=== PATIENT | female | born 1940 ===

== ENCOUNTER 2017-06-08 08:06 | Inpatient (IN) ==
[2017-06-08] MEDS ORDERED: ASPIRIN 325 MG TABLET PO STA (08:45)
[2017-06-08] MEDS ORDERED: ENOXAPARIN 100 MG/ML SYRINGE SUBCUT STA (08:45)
[2017-06-08] MEDS ORDERED: ACETAMINOPHEN 325 MG TABLET PO PRN (10:37)
[2017-06-08] MEDS ORDERED: ONDANSETRON 4 MG/2 ML VIAL IV PRN (10:37)
[2017-06-08] MEDS ORDERED: DEXTROSE 50% 25 GM/50 ML VIAL IV PRN (10:44)
[2017-06-08] MEDS ORDERED: GLUCAGON 1 MG VIAL IM PRN (10:44)
[2017-06-08] MEDS ORDERED: COLLOIDAL OATMEAL TOP SCH (10:45)
[2017-06-08] MEDS ORDERED: ENOXAPARIN 30 MG/0.3 ML SYRINGE SUBCUT SCH (11:00)
[2017-06-08] MEDS: INSULIN REGULAR 100 UNIT/ML SUBCUT SCH ×2 (13:10→17:33)
[2017-06-08] MEDS: GABAPENTIN 100 MG CAPSULE PO SCH ×2 (14:46→23:14)
[2017-06-08] MEDS: FUROSEMIDE 40 MG/4 ML VIAL IV SCH (16:19)
[2017-06-08] MEDS: ISOSORBIDE MONONITRATE 30 MG TABLET PO SCH (16:19)
[2017-06-08] MEDS: INSULIN NPH/REGULAR 70/30 100 UNIT/ML SUBCUT SCH (17:14)
[2017-06-08] MEDS: FERROUS GLUCONATE 324 MG TABLET PO SCH (17:14)
[2017-06-08] MEDS: SUCRALFATE 1 GM TABLET PO SCH (17:20)
[2017-06-08] MEDS: CARVEDILOL 6.25 MG TABLET PO SCH (23:14)
[2017-06-08] MEDS: hydrALAZINE 10 MG TABLET PO SCH (23:14)
[2017-06-08] MEDS: DOCUSATE SODIUM 100 MG CAPSULE PO SCH (23:14)
[2017-06-08] MEDS: DOXYCYCLINE HYCLATE 100 MG CAPSULE PO SCH (23:14)
[2017-06-08] MEDS: ENOXAPARIN 100 MG/ML SYRINGE SUBCUT SCH (23:14)
[2017-06-09] MEDS: SUCRALFATE 1 GM TABLET PO SCH ×4 (00:09→17:00)
[2017-06-09] MEDS: INSULIN REGULAR 100 UNIT/ML SUBCUT SCH ×4 (00:33→17:55)
[2017-06-09 04:52] LABS: Basophils % 0.3 % (0.0-0.8); Eosinophils # 0.1 10*3/uL (0.0-0.87); Eosinophils % 2.3 % (0.00-10.9); Hematocrit 25.1 VOL% (35.7-47.0); Immature Granulocytes % 0.3 %; Immature Granulocytes Absolute 0.01 #; Lymphocytes # 1.3 10*3/uL (1.4-4.0); Lymphocytes % 37.9 % (21.3-54.2); Mean Corpuscular HGB Conc 31.9 GM/DL (32-36); Mean Corpuscular Hemoglobin 32 PG (27-34); Mean Corpuscular Volume 98.8 FL (87-102); Mean Platelet Volume 9.6 FL (9.6-12.0); Monocytes # 0.2 10*3/uL (0.11-0.8); Neutrophils # 1.9 10*3/uL (1.4-7.4); Neutrophils % 54.2 % (38.7-73.9); Platelet Count 116 T/CUMM (130-400); Red Blood Count 2.54 MC/CUMM (3.8-5.5); Red Cell Distribution Width 12.7 % (9.3-17.3); White Blood Count 3.4 T/CUMM (4-12)
[2017-06-09 06:03] LABS: Calcium 7.8 MG/DL (8.5-10.1); Potassium 4.9 MMOL/L (3.5-5.1); Risk Ratio 2.42
[2017-06-09] MEDS ORDERED: ENOXAPARIN 30 MG/0.3 ML SYRINGE SUBCUT SCH (09:00)
[2017-06-09] MEDS ORDERED: LISINOPRIL 20 MG TABLET PO SCH (09:00)
[2017-06-09] MEDS ORDERED: ERGOCALCIFEROL 50,000 UNIT CAPSULE PO SCH (09:00)
[2017-06-09] MEDS: DOXYCYCLINE HYCLATE 100 MG CAPSULE PO SCH ×2 (10:38→20:50)
[2017-06-09] MEDS: FERROUS GLUCONATE 324 MG TABLET PO SCH ×2 (10:38→17:00)
[2017-06-09] MEDS: CARVEDILOL 6.25 MG TABLET PO SCH (10:38)
[2017-06-09] MEDS: ASPIRIN EC 81 MG TABLET PO SCH (10:38)
[2017-06-09] MEDS: GABAPENTIN 100 MG CAPSULE PO SCH ×3 (10:38→20:50)
[2017-06-09] MEDS: PANTOPRAZOLE 40 MG TABLET PO SCH (10:38)
[2017-06-09] MEDS: CHLORTHALIDONE 25 MG TABLET PO SCH (10:38)
[2017-06-09] MEDS: ISOSORBIDE MONONITRATE 30 MG TABLET PO SCH (10:38)
[2017-06-09] MEDS: TAMOXIFEN 10 MG TABLET PO SCH (10:38)
[2017-06-09] MEDS: DOCUSATE SODIUM 100 MG CAPSULE PO SCH ×2 (10:38→20:51)
[2017-06-09] MEDS: FUROSEMIDE 40 MG/4 ML VIAL IV SCH ×2 (10:39→16:25)
[2017-06-09] MEDS: INSULIN NPH/REGULAR 70/30 100 UNIT/ML SUBCUT SCH ×2 (10:39→17:00)
[2017-06-09] MEDS: ENOXAPARIN 40 MG/0.4 ML SYRINGE SUBCUT SCH (10:39)
[2017-06-09] MEDS: hydrALAZINE 10 MG TABLET PO SCH (10:39)
[2017-06-09] MEDS: ENOXAPARIN 100 MG/ML SYRINGE SUBCUT SCH (11:04)
[2017-06-09] MEDS ORDERED: CARVEDILOL 6.25 MG TABLET PO ONE (12:39)
[2017-06-09] MEDS: amLODIPine 5 MG TABLET PO SCH (12:57)
[2017-06-09] MEDS ORDERED: SKIN HEALING OINT (AQUAPHOR) 50 GM TUBE TOP PRN (15:55)
[2017-06-09] MEDS: ATORVASTATIN 40 MG TABLET PO SCH (20:50)
[2017-06-09] MEDS: CARVEDILOL 12.5 MG TABLET PO SCH (20:51)
[2017-06-09] MEDS ORDERED: CARVEDILOL 12.5 MG TABLET PO SCH (21:00)
[2017-06-09] MEDS ORDERED: CARVEDILOL 6.25 MG TABLET PO SCH (21:00)
[2017-06-10] MEDS: SUCRALFATE 1 GM TABLET PO SCH ×5 (00:29→23:35)
[2017-06-10] MEDS: INSULIN REGULAR 100 UNIT/ML SUBCUT SCH ×5 (00:29→20:51)
[2017-06-10 05:16] LABS: Basophils % 0.4 % (0.0-0.8); Eosinophils # 0.1 10*3/uL (0.0-0.87); Eosinophils % 3.6 % (0.00-10.9); Hematocrit 24.5 VOL% (35.7-47.0); Lymphocytes # 1.2 10*3/uL (1.4-4.0); Lymphocytes % 42.8 % (21.3-54.2); Mean Corpuscular HGB Conc 32.7 GM/DL (32-36); Mean Corpuscular Hemoglobin 32 PG (27-34); Mean Corpuscular Volume 97.6 FL (87-102); Mean Platelet Volume 10.3 FL (9.6-12.0); Monocytes # 0.2 10*3/uL (0.11-0.8); Monocytes % 6.5 % (1.7-12.7); Neutrophils # 1.3 10*3/uL (1.4-7.4); Neutrophils % 46.7 % (38.7-73.9); Platelet Count 104 T/CUMM (130-400); Red Blood Count 2.51 MC/CUMM (3.8-5.5); Red Cell Distribution Width 12.9 % (9.3-17.3); White Blood Count 2.8 T/CUMM (4-12)
[2017-06-10 05:36] LABS: Hypochromasia 1+; Ovalocytes Slight; Platelet Estimate Decreased
[2017-06-10 05:44] LABS: Calcium 7.8 MG/DL (8.5-10.1); Potassium 4.8 MMOL/L (3.5-5.1)
[2017-06-10] MEDS ORDERED: FUROSEMIDE 20 MG TABLET PO SCH (09:00)
[2017-06-10] MEDS: INSULIN NPH/REGULAR 70/30 100 UNIT/ML SUBCUT SCH ×2 (09:46→17:57)
[2017-06-10] MEDS: ENOXAPARIN 40 MG/0.4 ML SYRINGE SUBCUT SCH (09:49)
[2017-06-10] MEDS: FERROUS GLUCONATE 324 MG TABLET PO SCH ×2 (09:50→17:56)
[2017-06-10] MEDS: PANTOPRAZOLE 40 MG TABLET PO SCH (09:50)
[2017-06-10] MEDS: TAMOXIFEN 10 MG TABLET PO SCH (09:50)
[2017-06-10] MEDS: CHLORTHALIDONE 25 MG TABLET PO SCH (09:50)
[2017-06-10] MEDS: CARVEDILOL 12.5 MG TABLET PO SCH ×2 (09:50→20:51)
[2017-06-10] MEDS: DOXYCYCLINE HYCLATE 100 MG CAPSULE PO SCH ×2 (09:50→20:51)
[2017-06-10] MEDS: GABAPENTIN 100 MG CAPSULE PO SCH ×3 (09:51→20:51)
[2017-06-10] MEDS: BACITRACIN OINT 0.9 GM PACK TOP SCH (09:51)
[2017-06-10] MEDS: FUROSEMIDE 40 MG/4 ML VIAL IV SCH ×2 (09:51→16:05)
[2017-06-10] MEDS: ASPIRIN EC 81 MG TABLET PO SCH (09:51)
[2017-06-10] MEDS: DOCUSATE SODIUM 100 MG CAPSULE PO SCH ×2 (09:51→20:51)
[2017-06-10] MEDS: amLODIPine 5 MG TABLET PO SCH (09:51)
[2017-06-10] MEDS: ATORVASTATIN 40 MG TABLET PO SCH (20:51)
[2017-06-11 05:02] LABS: Basophils % 0.5 % (0.0-0.8); Eosinophils # 0.1 10*3/uL (0.0-0.87); Eosinophils % 2.4 % (0.00-10.9); Hemoglobin 9.4 GM/DL (12.0-16.0); Immature Granulocytes % 0.5 %; Immature Granulocytes Absolute 0.02 #; Lymphocytes # 1.1 10*3/uL (1.4-4.0); Lymphocytes % 30.3 % (21.3-54.2); Mean Corpuscular HGB Conc 32.4 GM/DL (32-36); Mean Corpuscular Hemoglobin 32 PG (27-34); Mean Corpuscular Volume 98.3 FL (87-102); Mean Platelet Volume 10.6 FL (9.6-12.0); Monocytes # 0.2 10*3/uL (0.11-0.8); Monocytes % 4.3 % (1.7-12.7); Neutrophils # 2.3 10*3/uL (1.4-7.4); Platelet Count 125 T/CUMM (130-400); Red Blood Count 2.95 MC/CUMM (3.8-5.5); Red Cell Distribution Width 12.6 % (9.3-17.3); White Blood Count 3.7 T/CUMM (4-12)
[2017-06-11 05:36] LABS: Calcium 8.2 MG/DL (8.5-10.1); Osmolality,Calculated 296.3 MOS/KG (273-304); Potassium 5.1 MMOL/L (3.5-5.1)
[2017-06-11] MEDS: SUCRALFATE 1 GM TABLET PO SCH ×4 (06:33→23:52)
[2017-06-11] MEDS: INSULIN REGULAR 100 UNIT/ML SUBCUT SCH ×4 (09:51→21:47)
[2017-06-11] MEDS: INSULIN NPH/REGULAR 70/30 100 UNIT/ML SUBCUT SCH ×2 (09:51→17:50)
[2017-06-11] MEDS: DOCUSATE SODIUM 100 MG CAPSULE PO SCH ×2 (09:52→21:07)
[2017-06-11] MEDS: TAMOXIFEN 10 MG TABLET PO SCH (09:52)
[2017-06-11] MEDS: FERROUS GLUCONATE 324 MG TABLET PO SCH ×2 (09:52→16:45)
[2017-06-11] MEDS: GABAPENTIN 100 MG CAPSULE PO SCH ×3 (09:52→21:07)
[2017-06-11] MEDS: PANTOPRAZOLE 40 MG TABLET PO SCH (09:52)
[2017-06-11] MEDS: ASPIRIN EC 81 MG TABLET PO SCH (09:52)
[2017-06-11] MEDS: CHLORTHALIDONE 25 MG TABLET PO SCH (09:52)
[2017-06-11] MEDS: amLODIPine 5 MG TABLET PO SCH (09:52)
[2017-06-11] MEDS: BACITRACIN OINT 0.9 GM PACK TOP SCH (09:52)
[2017-06-11] MEDS: CARVEDILOL 12.5 MG TABLET PO SCH ×2 (09:52→21:07)
[2017-06-11] MEDS: ENOXAPARIN 30 MG/0.3 ML SYRINGE SUBCUT SCH (09:53)
[2017-06-11] MEDS: FUROSEMIDE 40 MG/4 ML VIAL IV SCH ×2 (09:53→16:45)
[2017-06-11] MEDS: ATORVASTATIN 40 MG TABLET PO SCH (21:07)
[2017-06-12] MEDS: SUCRALFATE 1 GM TABLET PO SCH ×3 (05:12→17:00)
[2017-06-12 05:48] LABS: Basophils % 0.3 % (0.0-0.8); Eosinophils # 0.1 10*3/uL (0.0-0.87); Eosinophils % 3.4 % (0.00-10.9); Hematocrit 25.3 VOL% (35.7-47.0); Hemoglobin 8.2 GM/DL (12.0-16.0); Immature Granulocytes % 0.3 %; Immature Granulocytes Absolute 0.01 #; Lymphocytes # 1.8 10*3/uL (1.4-4.0); Lymphocytes % 50.7 % (21.3-54.2); Mean Corpuscular HGB Conc 32.4 GM/DL (32-36); Mean Corpuscular Hemoglobin 32 PG (27-34); Mean Corpuscular Volume 99.2 FL (87-102); Mean Platelet Volume 10.5 FL (9.6-12.0); Monocytes # 0.2 10*3/uL (0.11-0.8); Monocytes % 5.9 % (1.7-12.7); Neutrophils # 1.4 10*3/uL (1.4-7.4); Neutrophils % 39.4 % (38.7-73.9); Platelet Count 114 T/CUMM (130-400); Red Blood Count 2.55 MC/CUMM (3.8-5.5); White Blood Count 3.6 T/CUMM (4-12)
[2017-06-12 06:21] LABS: Calcium 7.9 MG/DL (8.5-10.1); Potassium 4.4 MMOL/L (3.5-5.1)
[2017-06-12] MEDS: FUROSEMIDE 40 MG/4 ML VIAL IV SCH ×2 (10:04→16:51)
[2017-06-12] MEDS: INSULIN NPH/REGULAR 70/30 100 UNIT/ML SUBCUT SCH ×2 (10:07→16:51)
[2017-06-12] MEDS: ENOXAPARIN 30 MG/0.3 ML SYRINGE SUBCUT SCH (10:07)
[2017-06-12] MEDS: INSULIN REGULAR 100 UNIT/ML SUBCUT SCH ×4 (10:09→20:57)
[2017-06-12] MEDS: CARVEDILOL 12.5 MG TABLET PO SCH ×2 (10:09→20:55)
[2017-06-12] MEDS: GABAPENTIN 100 MG CAPSULE PO SCH ×3 (10:09→20:55)
[2017-06-12] MEDS: CHLORTHALIDONE 25 MG TABLET PO SCH (10:09)
[2017-06-12] MEDS: amLODIPine 5 MG TABLET PO SCH (10:10)
[2017-06-12] MEDS: ASPIRIN EC 81 MG TABLET PO SCH (10:10)
[2017-06-12] MEDS: DOCUSATE SODIUM 100 MG CAPSULE PO SCH ×2 (10:10→20:56)
[2017-06-12] MEDS: TAMOXIFEN 10 MG TABLET PO SCH (10:10)
[2017-06-12] MEDS: FERROUS GLUCONATE 324 MG TABLET PO SCH ×2 (10:10→16:50)
[2017-06-12] MEDS: PANTOPRAZOLE 40 MG TABLET PO SCH (10:10)
[2017-06-12] MEDS: BACITRACIN OINT 0.9 GM PACK TOP SCH (10:12)
[2017-06-12] MEDS: ATORVASTATIN 40 MG TABLET PO SCH (20:55)
[2017-06-13] MEDS: SUCRALFATE 1 GM TABLET PO SCH ×3 (00:37→12:31)
[2017-06-13 05:07] LABS: Basophils % 0.3 % (0.0-0.8); Eosinophils # 0.1 10*3/uL (0.0-0.87); Eosinophils % 2.9 % (0.00-10.9); Hematocrit 26.1 VOL% (35.7-47.0); Hemoglobin 8.4 GM/DL (12.0-16.0); Immature Granulocytes % 0.3 %; Immature Granulocytes Absolute 0.01 #; Lymphocytes # 1.3 10*3/uL (1.4-4.0); Lymphocytes % 38.5 % (21.3-54.2); Mean Corpuscular HGB Conc 32.2 GM/DL (32-36); Mean Corpuscular Hemoglobin 32 PG (27-34); Mean Corpuscular Volume 98.1 FL (87-102); Mean Platelet Volume 10.4 FL (9.6-12.0); Monocytes # 0.2 10*3/uL (0.11-0.8); Monocytes % 5.9 % (1.7-12.7); Neutrophils # 1.8 10*3/uL (1.4-7.4); Neutrophils % 52.1 % (38.7-73.9); Platelet Count 112 T/CUMM (130-400); Red Blood Count 2.66 MC/CUMM (3.8-5.5); Red Cell Distribution Width 12.7 % (9.3-17.3); White Blood Count 3.4 T/CUMM (4-12)
[2017-06-13 05:39] LABS: Potassium 4.2 MMOL/L (3.5-5.1)
[2017-06-13] MEDS ORDERED: FUROSEMIDE 40 MG TABLET PO SCH (09:00)
[2017-06-13] MEDS: INSULIN REGULAR 100 UNIT/ML SUBCUT SCH ×2 (09:12→12:30)
[2017-06-13] MEDS: TAMOXIFEN 10 MG TABLET PO SCH (09:15)
[2017-06-13] MEDS: GABAPENTIN 100 MG CAPSULE PO SCH ×2 (09:15→15:12)
[2017-06-13] MEDS: DOCUSATE SODIUM 100 MG CAPSULE PO SCH (09:15)
[2017-06-13] MEDS: amLODIPine 5 MG TABLET PO SCH (09:15)
[2017-06-13] MEDS: FERROUS GLUCONATE 324 MG TABLET PO SCH (09:16)
[2017-06-13] MEDS: CHLORTHALIDONE 25 MG TABLET PO SCH (09:16)
[2017-06-13] MEDS: CARVEDILOL 12.5 MG TABLET PO SCH (09:16)
[2017-06-13] MEDS: ASPIRIN EC 81 MG TABLET PO SCH (09:16)
[2017-06-13] MEDS: INSULIN NPH/REGULAR 70/30 100 UNIT/ML SUBCUT SCH (09:16)
[2017-06-13] MEDS: ENOXAPARIN 30 MG/0.3 ML SYRINGE SUBCUT SCH (09:22)
[2017-06-13] MEDS: PANTOPRAZOLE 40 MG TABLET PO SCH (09:22)
[2017-06-13 10:38] LABS: Anti-Nuclear Antibody Pattern SEE COMMENTS
[2017-06-13 10:40] LABS: Anti SS-A Antibodies < 16 EU/ML; Anti SS-B Antibodies < 16 EU/ML; Double Stranded DNA Antibodies < 25.0 IU/ML
[2017-06-13] MEDS: BACITRACIN OINT 0.9 GM PACK TOP SCH (13:49)
[2017-06-13 16:36] VITALS: BP 124/57
== END 2017-06-13 16:58 | disposition home or self-care (01) | DRG 314 ==
LOC: EDBD → EDUNIT# → N.EDINP 08:06 → N.ED 08:06 → N.EDINP 12:34 → N.TELEN 12:37

== ENCOUNTER 2017-09-18 05:50 | Observation (INO) ==
[2017-09-18] MEDS ORDERED: ONDANSETRON 4 MG/2 ML VIAL IV PRN (10:48)
[2017-09-18] MEDS ORDERED: ACETAMINOPHEN 325 MG TABLET PO PRN (10:48)
[2017-09-18] MEDS ORDERED: GLUCAGON 1 MG VIAL IM PRN ×2 (11:08→12:15)
[2017-09-18] MEDS ORDERED: DEXTROSE 50% 25 GM/50 ML VIAL IV PRN ×2 (11:08→12:15)
[2017-09-18 11:42] LABS: Basophils % 0.2 % (0.0-0.8); Eosinophils # 0.1 10*3/uL (0.0-0.87); Hemoglobin 9.4 GM/DL (12.0-16.0); Immature Granulocytes % 0.2 %; Immature Granulocytes Absolute 0.01 #; Lymphocytes # 1.6 10*3/uL (1.4-4.0); Lymphocytes % 34.5 % (21.3-54.2); Mean Corpuscular HGB Conc 32.4 GM/DL (32-36); Mean Corpuscular Hemoglobin 32 PG (27-34); Mean Corpuscular Volume 98.3 FL (87-102); Mean Platelet Volume 10.9 FL (9.6-12.0); Monocytes # 0.2 10*3/uL (0.11-0.8); Monocytes % 5.3 % (1.7-12.7); Neutrophils # 2.6 10*3/uL (1.4-7.4); Neutrophils % 57.8 % (38.7-73.9); Red Blood Count 2.95 MC/CUMM (3.8-5.5); Red Cell Distribution Width 12.6 % (9.3-17.3); White Blood Count 4.5 T/CUMM (4-12)
[2017-09-18 11:44] LABS: Platelet Count 86 T/CUMM (130-400)
[2017-09-18 11:52] LABS: Calcium 8.3 MG/DL (8.5-10.1); Osmolality,Calculated 291.7 MOS/KG (273-304); Potassium 4.4 MMOL/L (3.5-5.1)
[2017-09-18 12:08] LABS: Hypochromasia 1+; Platelet Estimate Decreased
[2017-09-18] MEDS: LISINOPRIL 20 MG TABLET PO SCH (13:15)
[2017-09-18] MEDS: amLODIPine 5 MG TABLET PO SCH (13:15)
[2017-09-18 13:29] LABS: Troponin I Only 0.025 NG/ML (0.00-0.045)
[2017-09-18] MEDS: FUROSEMIDE 40 MG TABLET PO SCH (21:20)
[2017-09-18] MEDS: CARVEDILOL 6.25 MG TABLET PO SCH (21:20)
[2017-09-18] MEDS: ATORVASTATIN 40 MG TABLET PO SCH (21:21)
[2017-09-19 05:05] LABS: Basophils % 0.3 % (0.0-0.8); Eosinophils # 0.1 10*3/uL (0.0-0.87); Eosinophils % 3.1 % (0.00-10.9); Hematocrit 28.1 VOL% (35.7-47.0); Hemoglobin 9.2 GM/DL (12.0-16.0); Immature Granulocytes % 0.3 %; Immature Granulocytes Absolute 0.01 #; Lymphocytes # 1.3 10*3/uL (1.4-4.0); Lymphocytes % 41.1 % (21.3-54.2); Mean Corpuscular HGB Conc 32.7 GM/DL (32-36); Mean Corpuscular Hemoglobin 32 PG (27-34); Mean Corpuscular Volume 96.6 FL (87-102); Mean Platelet Volume 10.9 FL (9.6-12.0); Monocytes # 0.2 10*3/uL (0.11-0.8); Monocytes % 6.6 % (1.7-12.7); Neutrophils # 1.6 10*3/uL (1.4-7.4); Neutrophils % 48.6 % (38.7-73.9); Red Blood Count 2.91 MC/CUMM (3.8-5.5); Red Cell Distribution Width 12.3 % (9.3-17.3); White Blood Count 3.2 T/CUMM (4-12)
[2017-09-19 05:17] LABS: Calcium 7.8 MG/DL (8.5-10.1); Osmolality,Calculated 299.7 MOS/KG (273-304); Potassium 4.4 MMOL/L (3.5-5.1)
[2017-09-19 05:22] LABS: Platelet Count 84 T/CUMM (130-400)
[2017-09-19 06:05] LABS: Platelet Estimate Decreased
[2017-09-19 06:06] LABS: Anisocytosis 1+
[2017-09-19] MEDS: ASPIRIN EC 81 MG TABLET PO SCH (09:25)
[2017-09-19] MEDS: LISINOPRIL 20 MG TABLET PO SCH (09:25)
[2017-09-19] MEDS: FUROSEMIDE 40 MG TABLET PO SCH ×2 (09:25→21:16)
[2017-09-19] MEDS: amLODIPine 5 MG TABLET PO SCH (09:25)
[2017-09-19] MEDS: CARVEDILOL 6.25 MG TABLET PO SCH ×2 (09:25→21:10)
[2017-09-19] MEDS: PANTOPRAZOLE 40 MG TABLET PO SCH (09:25)
[2017-09-19] MEDS ORDERED: SKIN HEALING OINT (AQUAPHOR) 50 GM TUBE TOP PRN (11:06)
[2017-09-19] MEDS ORDERED: GLUCAGON 1 MG VIAL IM PRN ×2 (12:31→13:56)
[2017-09-19] MEDS ORDERED: DEXTROSE 50% 25 GM/50 ML VIAL IV PRN ×2 (12:31→13:56)
[2017-09-19 14:20] LABS: Albumin 2.1 G/DL (3.4-5.0); Bilirubin,Direct 0.13 MG/DL (0.0-0.20); Bilirubin,Indirect 0.4 MG/DL (0.0-1.0); Bilirubin,Total 0.5 MG/DL (0.2-1.0); Total Protein 6.9 G/DL (6.4-8.3)
[2017-09-19] MEDS: INSULIN NPH/REGULAR 70/30 100 UNIT/ML SUBCUT SCH (15:53)
[2017-09-19] MEDS: INSULIN LISPRO 100 UNIT/ML SUBCUT SCH ×2 (15:54→21:16)
[2017-09-19 17:42] LABS: Apearance,Urine CLEAR (Clear); Bilirubin,Urine Negative (Negative); Blood, Urine Moderate mg/dL (Negative); Glucose,Urine (UA) >=500 mg/dL (Negative); Hyaline Casts,Urine 1 /LPF (0-3); Ketones,Urine Negative (Negative); Nitrite,Urine Positive (Negative); Protein,Urine 100 MG/DL; RBC,Urine 38 /HPF (0-4); Urine Color Yellow (Yellow); Urine Specific Gravity 1.006 (1.001-1.035); Urine Urobilinogen < 2.0 EU/DL (0.2-1.0); WBC,Urine 26 /HPF (0-6)
[2017-09-19] MEDS: ATORVASTATIN 40 MG TABLET PO SCH (21:10)
[2017-09-20 06:14] LABS: Basophils % 0.2 % (0.0-0.8); Eosinophils # 0.1 10*3/uL (0.0-0.87); Hematocrit 30.3 VOL% (35.7-47.0); Hemoglobin 10.3 GM/DL (12.0-16.0); Immature Granulocytes % 0.2 %; Immature Granulocytes Absolute 0.01 #; Lymphocytes # 1.8 10*3/uL (1.4-4.0); Lymphocytes % 35.2 % (21.3-54.2); Mean Corpuscular Hemoglobin 31 PG (27-34); Mean Corpuscular Volume 92.4 FL (87-102); Mean Platelet Volume 10.9 FL (9.6-12.0); Monocytes # 0.2 10*3/uL (0.11-0.8); Monocytes % 4.8 % (1.7-12.7); Neutrophils # 2.9 10*3/uL (1.4-7.4); Neutrophils % 57.6 % (38.7-73.9); Platelet Count 110 T/CUMM (130-400); Red Blood Count 3.28 MC/CUMM (3.8-5.5); Red Cell Distribution Width 12.4 % (9.3-17.3)
[2017-09-20 06:44] LABS: Calcium 8.6 MG/DL (8.5-10.1); Osmolality,Calculated 296.4 MOS/KG (273-304); Potassium 3.8 MMOL/L (3.5-5.1)
[2017-09-20] MEDS: ASPIRIN EC 81 MG TABLET PO SCH (08:44)
[2017-09-20] MEDS: FUROSEMIDE 40 MG TABLET PO SCH (08:44)
[2017-09-20] MEDS: PANTOPRAZOLE 40 MG TABLET PO SCH (08:44)
[2017-09-20] MEDS: LISINOPRIL 20 MG TABLET PO SCH (08:44)
[2017-09-20] MEDS: amLODIPine 5 MG TABLET PO SCH (08:44)
[2017-09-20] MEDS: INSULIN LISPRO 100 UNIT/ML SUBCUT SCH ×2 (08:45→12:29)
[2017-09-20] MEDS: CARVEDILOL 6.25 MG TABLET PO SCH (08:45)
[2017-09-20] MEDS: INSULIN NPH/REGULAR 70/30 100 UNIT/ML SUBCUT SCH (08:45)
[2017-09-20 11:46] VITALS: BP 102/53
== END 2017-09-20 13:46 | disposition home or self-care (01) ==
LOC: N.TELES → SUATTDRO 09:14 → N.2E 09-19 18:07
PROVIDERS: ADMIT Internal Medicine; ATTEND Internal Medicine

== ENCOUNTER 2017-09-24 20:40 | Inpatient (IN) ==
[2017-09-24] MEDS ORDERED: ONDANSETRON 4 MG/2 ML VIAL IV PRN (23:40)
[2017-09-24] MEDS ORDERED: DEXTROSE 50% 25 GM/50 ML VIAL IV PRN (23:40)
[2017-09-24] MEDS ORDERED: GLUCAGON 1 MG VIAL IM PRN (23:40)
[2017-09-24] MEDS ORDERED: SODIUM CHLORIDE 0.9% 1,000 ML IV SCH (23:45)
[2017-09-25] MEDS: VANCOMYCIN INJ 1,250 MG in SODIUM CHLORIDE 0.9% 250 ML IV SCH (02:51)
[2017-09-25 03:39] LABS: Basophils % 0.3 % (0.0-0.8); Eosinophils # 0.1 10*3/uL (0.0-0.87); Eosinophils % 2.3 % (0.00-10.9); Hematocrit 28.1 VOL% (35.7-47.0); Hemoglobin 9.3 GM/DL (12.0-16.0); Immature Granulocytes % 0.3 %; Immature Granulocytes Absolute 0.01 #; Lymphocytes # 1.1 10*3/uL (1.4-4.0); Lymphocytes % 28.8 % (21.3-54.2); Mean Corpuscular HGB Conc 33.1 GM/DL (32-36); Mean Corpuscular Hemoglobin 32 PG (27-34); Mean Corpuscular Volume 96.2 FL (87-102); Mean Platelet Volume 10.9 FL (9.6-12.0); Monocytes # 0.3 10*3/uL (0.11-0.8); Monocytes % 7.9 % (1.7-12.7); Neutrophils # 2.4 10*3/uL (1.4-7.4); Neutrophils % 60.4 % (38.7-73.9); Platelet Count 132 T/CUMM (130-400); Red Blood Count 2.92 MC/CUMM (3.8-5.5); Red Cell Distribution Width 12.3 % (9.3-17.3); White Blood Count 3.9 T/CUMM (4-12)
[2017-09-25 04:03] LABS: Albumin 2.2 G/DL (3.4-5.0); Bilirubin,Total 0.4 MG/DL (0.2-1.0); Osmolality,Calculated 305.3 MOS/KG (273-304); Potassium 4.4 MMOL/L (3.5-5.1); Total Protein 7.1 G/DL (6.4-8.3)
[2017-09-25] MEDS: ENOXAPARIN 30 MG/0.3 ML SYRINGE SUBCUT SCH ×2 (09:00→10:12)
[2017-09-25] MEDS: INSULIN NPH/REGULAR 70/30 100 UNIT/ML SUBCUT SCH ×2 (09:00→17:07)
[2017-09-25] MEDS: DOCUSATE SODIUM 100 MG CAPSULE PO SCH ×2 (09:01→20:31)
[2017-09-25] MEDS: FUROSEMIDE 40 MG TABLET PO SCH (09:02)
[2017-09-25] MEDS: amLODIPine 5 MG TABLET PO SCH (09:02)
[2017-09-25] MEDS: CARVEDILOL 6.25 MG TABLET PO SCH ×2 (09:02→17:25)
[2017-09-25] MEDS: TAMOXIFEN 10 MG TABLET PO SCH (09:02)
[2017-09-25] MEDS: PANTOPRAZOLE 40 MG TABLET PO SCH (09:02)
[2017-09-25] MEDS: ASPIRIN EC 81 MG TABLET PO SCH (09:02)
[2017-09-25] MEDS: SUCRALFATE 1 GM TABLET PO SCH ×4 (09:02→20:31)
[2017-09-25] MEDS: FERROUS GLUCONATE 324 MG TABLET PO SCH ×2 (09:03→17:07)
[2017-09-25] MEDS: GABAPENTIN 100 MG CAPSULE PO SCH ×3 (09:03→20:31)
[2017-09-25] MEDS: INSULIN REGULAR 100 UNIT/ML SUBCUT SCH ×4 (10:11→20:33)
[2017-09-25] MEDS ORDERED: SODIUM CHLORIDE 0.9% 250 ML IV ONE (16:00)
[2017-09-25] MEDS: ATORVASTATIN 40 MG TABLET PO SCH (20:31)
[2017-09-25] MEDS: SODIUM CHLORIDE 0.9% 1,000 ML IV SCH (20:33)
[2017-09-26 06:18] LABS: Basophils % 0.5 % (0.0-0.8); Eosinophils # 0.1 10*3/uL (0.0-0.87); Eosinophils % 2.6 % (0.00-10.9); Hematocrit 26.9 VOL% (35.7-47.0); Hemoglobin 8.9 GM/DL (12.0-16.0); Immature Granulocytes % 0.2 %; Immature Granulocytes Absolute 0.01 #; Lymphocytes # 1.4 10*3/uL (1.4-4.0); Lymphocytes % 32.6 % (21.3-54.2); Mean Corpuscular HGB Conc 33.1 GM/DL (32-36); Mean Corpuscular Hemoglobin 32 PG (27-34); Mean Corpuscular Volume 96.1 FL (87-102); Mean Platelet Volume 10.5 FL (9.6-12.0); Monocytes # 0.3 10*3/uL (0.11-0.8); Monocytes % 7.1 % (1.7-12.7); Neutrophils # 2.4 10*3/uL (1.4-7.4); Platelet Count 130 T/CUMM (130-400); Red Cell Distribution Width 12.2 % (9.3-17.3); White Blood Count 4.2 T/CUMM (4-12)
[2017-09-26 06:36] LABS: Calcium 7.7 MG/DL (8.5-10.1); Osmolality,Calculated 303.8 MOS/KG (273-304); Potassium 4.2 MMOL/L (3.5-5.1)
[2017-09-26] MEDS: INSULIN REGULAR 100 UNIT/ML SUBCUT SCH ×4 (08:10→21:25)
[2017-09-26] MEDS: TAMOXIFEN 10 MG TABLET PO SCH (09:37)
[2017-09-26] MEDS: PANTOPRAZOLE 40 MG TABLET PO SCH (09:37)
[2017-09-26] MEDS: ASPIRIN EC 81 MG TABLET PO SCH (09:37)
[2017-09-26] MEDS: SUCRALFATE 1 GM TABLET PO SCH ×4 (09:37→21:15)
[2017-09-26] MEDS: amLODIPine 5 MG TABLET PO SCH (09:37)
[2017-09-26] MEDS: GABAPENTIN 100 MG CAPSULE PO SCH ×3 (09:37→21:15)
[2017-09-26] MEDS: FUROSEMIDE 40 MG TABLET PO SCH (09:37)
[2017-09-26] MEDS: DOCUSATE SODIUM 100 MG CAPSULE PO SCH ×2 (09:37→21:15)
[2017-09-26] MEDS: FERROUS GLUCONATE 324 MG TABLET PO SCH ×2 (09:38→16:51)
[2017-09-26] MEDS: INSULIN NPH/REGULAR 70/30 100 UNIT/ML SUBCUT SCH ×2 (09:38→17:14)
[2017-09-26] MEDS: CARVEDILOL 6.25 MG TABLET PO SCH ×2 (09:38→16:52)
[2017-09-26] MEDS: ENOXAPARIN 30 MG/0.3 ML SYRINGE SUBCUT SCH (09:38)
[2017-09-26] MEDS: SODIUM CHLORIDE 0.9% 1,000 ML IV SCH (17:14)
[2017-09-26] MEDS: ATORVASTATIN 40 MG TABLET PO SCH (21:15)
[2017-09-27] MEDS: VANCOMYCIN INJ 1,250 MG in SODIUM CHLORIDE 0.9% 250 ML IV SCH (01:08)
[2017-09-27] MEDS: TAMOXIFEN 10 MG TABLET PO SCH (09:34)
[2017-09-27] MEDS: amLODIPine 5 MG TABLET PO SCH (09:34)
[2017-09-27] MEDS: ASPIRIN EC 81 MG TABLET PO SCH (09:34)
[2017-09-27] MEDS: PANTOPRAZOLE 40 MG TABLET PO SCH (09:35)
[2017-09-27] MEDS: DOCUSATE SODIUM 100 MG CAPSULE PO SCH ×2 (09:35→21:58)
[2017-09-27] MEDS: FUROSEMIDE 40 MG TABLET PO SCH (09:35)
[2017-09-27] MEDS: INSULIN NPH/REGULAR 70/30 100 UNIT/ML SUBCUT SCH ×2 (09:35→17:13)
[2017-09-27] MEDS: FERROUS GLUCONATE 324 MG TABLET PO SCH ×2 (09:35→17:09)
[2017-09-27] MEDS: SUCRALFATE 1 GM TABLET PO SCH ×4 (09:35→21:59)
[2017-09-27] MEDS: GABAPENTIN 100 MG CAPSULE PO SCH ×3 (09:35→21:59)
[2017-09-27] MEDS: CARVEDILOL 6.25 MG TABLET PO SCH ×2 (09:35→17:09)
[2017-09-27] MEDS: ENOXAPARIN 30 MG/0.3 ML SYRINGE SUBCUT SCH (09:36)
[2017-09-27] MEDS: INSULIN REGULAR 100 UNIT/ML SUBCUT SCH ×4 (09:36→21:59)
[2017-09-27] MEDS: SODIUM CHLORIDE 0.9% 1,000 ML IV SCH (14:23)
[2017-09-27] MEDS: ATORVASTATIN 40 MG TABLET PO SCH (21:59)
[2017-09-28] MEDS: VANCOMYCIN INJ 1,250 MG in SODIUM CHLORIDE 0.9% 250 ML IV SCH (01:17)
[2017-09-28 06:09] LABS: Basophils % 0.2 % (0.0-0.8); Eosinophils # 0.1 10*3/uL (0.0-0.87); Eosinophils % 3.4 % (0.00-10.9); Hematocrit 27.1 VOL% (35.7-47.0); Hemoglobin 9.1 GM/DL (12.0-16.0); Immature Granulocytes % 0.2 %; Immature Granulocytes Absolute 0.01 #; Lymphocytes # 1.8 10*3/uL (1.4-4.0); Mean Corpuscular HGB Conc 33.6 GM/DL (32-36); Mean Corpuscular Hemoglobin 32 PG (27-34); Mean Corpuscular Volume 94.1 FL (87-102); Mean Platelet Volume 10.4 FL (9.6-12.0); Monocytes # 0.3 10*3/uL (0.11-0.8); Monocytes % 7.2 % (1.7-12.7); Neutrophils # 1.9 10*3/uL (1.4-7.4); Platelet Count 150 T/CUMM (130-400); Red Blood Count 2.88 MC/CUMM (3.8-5.5); Red Cell Distribution Width 12.2 % (9.3-17.3); White Blood Count 4.2 T/CUMM (4-12)
[2017-09-28 06:28] LABS: Alanine Aminotransferase 18 U/L (13-56); Alkaline Phosphatase 79 U/L (45-117); Aspartate Amino Transferase 18 U/L (0-37); Bilirubin,Total < 0.39 MG/DL (0.2-1.0); Blood Urea Nitrogen 52 MG/DL (7-18); Calcium 7.8 MG/DL (8.5-10.1); Glucose 73 MG/DL (74-106); Osmolality,Calculated 291.4 MOS/KG (273-304); Potassium 4.2 MMOL/L (3.5-5.1); Sodium 140 MMOL/L (136-145); Total Protein 6.8 G/DL (6.4-8.3)
[2017-09-28] MEDS: INSULIN REGULAR 100 UNIT/ML SUBCUT SCH ×4 (07:31→21:06)
[2017-09-28] MEDS: INSULIN NPH/REGULAR 70/30 100 UNIT/ML SUBCUT SCH ×2 (07:31→16:35)
[2017-09-28] MEDS: ASPIRIN EC 81 MG TABLET PO SCH (08:08)
[2017-09-28] MEDS: TAMOXIFEN 10 MG TABLET PO SCH (08:08)
[2017-09-28] MEDS: DOCUSATE SODIUM 100 MG CAPSULE PO SCH ×2 (08:08→21:06)
[2017-09-28] MEDS: GABAPENTIN 100 MG CAPSULE PO SCH ×3 (08:08→21:06)
[2017-09-28] MEDS: FERROUS GLUCONATE 324 MG TABLET PO SCH ×2 (08:08→16:36)
[2017-09-28] MEDS: ENOXAPARIN 30 MG/0.3 ML SYRINGE SUBCUT SCH (08:08)
[2017-09-28] MEDS: amLODIPine 5 MG TABLET PO SCH (08:09)
[2017-09-28] MEDS: PANTOPRAZOLE 40 MG TABLET PO SCH (08:09)
[2017-09-28] MEDS: SODIUM CHLORIDE 0.9% 1,000 ML IV SCH (08:09)
[2017-09-28] MEDS: FUROSEMIDE 40 MG TABLET PO SCH (08:09)
[2017-09-28] MEDS: CARVEDILOL 6.25 MG TABLET PO SCH ×2 (08:09→16:35)
[2017-09-28] MEDS: SUCRALFATE 1 GM TABLET PO SCH ×4 (08:09→21:06)
[2017-09-28] MEDS: ATORVASTATIN 40 MG TABLET PO SCH (21:06)
[2017-09-29] MEDS: VANCOMYCIN INJ 1,250 MG in SODIUM CHLORIDE 0.9% 250 ML IV SCH (00:57)
[2017-09-29] MEDS: INSULIN NPH/REGULAR 70/30 100 UNIT/ML SUBCUT SCH ×2 (07:36→16:41)
[2017-09-29] MEDS: INSULIN REGULAR 100 UNIT/ML SUBCUT SCH ×4 (08:09→20:26)
[2017-09-29] MEDS: ASPIRIN EC 81 MG TABLET PO SCH (08:10)
[2017-09-29] MEDS: SUCRALFATE 1 GM TABLET PO SCH ×4 (08:10→20:26)
[2017-09-29] MEDS: DOCUSATE SODIUM 100 MG CAPSULE PO SCH ×2 (08:10→20:26)
[2017-09-29] MEDS: CARVEDILOL 6.25 MG TABLET PO SCH ×2 (08:10→16:35)
[2017-09-29] MEDS: FERROUS GLUCONATE 324 MG TABLET PO SCH ×2 (08:10→16:34)
[2017-09-29] MEDS: ENOXAPARIN 30 MG/0.3 ML SYRINGE SUBCUT SCH (08:10)
[2017-09-29] MEDS: GABAPENTIN 100 MG CAPSULE PO SCH ×3 (08:11→20:27)
[2017-09-29] MEDS ORDERED: LIDOCAINE 1% 20 ML VIAL ONE (14:11)
[2017-09-29] MEDS ORDERED: BUPIVACAINE 0.25% /EPI 10 ML VIAL ONE (14:12)
[2017-09-29] MEDS ORDERED: LIDOCAINE 1%/EPI INJ 20 ML VIAL ONE (14:12)
[2017-09-29] MEDS ORDERED: PROPOFOL 200 MG/20 ML VIAL IV ONE (15:26)
[2017-09-29] MEDS ORDERED: fentaNYL 100 MCG/2 ML VIAL ONE (15:27)
[2017-09-29] MEDS ORDERED: MIDAZOLAM 2 MG/2 ML VIAL ONE (15:27)
[2017-09-29] MEDS ORDERED: ONDANSETRON 4 MG/2 ML VIAL ONE (15:27)
[2017-09-29] MEDS: TAMOXIFEN 10 MG TABLET PO SCH (16:33)
[2017-09-29] MEDS: amLODIPine 5 MG TABLET PO SCH (16:33)
[2017-09-29] MEDS: PANTOPRAZOLE 40 MG TABLET PO SCH (16:35)
[2017-09-29] MEDS: FUROSEMIDE 40 MG TABLET PO SCH (16:35)
[2017-09-29] MEDS: ATORVASTATIN 40 MG TABLET PO SCH (20:27)
[2017-09-30 05:28] LABS: Basophils % 0.2 % (0.0-0.8); Eosinophils # 0.1 10*3/uL (0.0-0.87); Eosinophils % 2.3 % (0.00-10.9); Hematocrit 26.8 VOL% (35.7-47.0); Immature Granulocytes % 0.2 %; Immature Granulocytes Absolute 0.01 #; Lymphocytes # 1.5 10*3/uL (1.4-4.0); Lymphocytes % 34.3 % (21.3-54.2); Mean Corpuscular HGB Conc 33.6 GM/DL (32-36); Mean Corpuscular Hemoglobin 32 PG (27-34); Mean Corpuscular Volume 94.4 FL (87-102); Mean Platelet Volume 10.3 FL (9.6-12.0); Monocytes # 0.3 10*3/uL (0.11-0.8); Monocytes % 6.7 % (1.7-12.7); Neutrophils # 2.4 10*3/uL (1.4-7.4); Neutrophils % 56.3 % (38.7-73.9); Platelet Count 157 T/CUMM (130-400); Red Blood Count 2.84 MC/CUMM (3.8-5.5); Red Cell Distribution Width 11.9 % (9.3-17.3); White Blood Count 4.3 T/CUMM (4-12)
[2017-09-30] MEDS: VANCOMYCIN INJ 1,250 MG in SODIUM CHLORIDE 0.9% 250 ML IV SCH (05:31)
[2017-09-30 05:53] LABS: Bilirubin,Total 0.6 MG/DL (0.2-1.0); Osmolality,Calculated 296.3 MOS/KG (273-304); Total Protein 6.8 G/DL (6.4-8.3)
[2017-09-30] MEDS: TAMOXIFEN 10 MG TABLET PO SCH (08:32)
[2017-09-30] MEDS: GABAPENTIN 100 MG CAPSULE PO SCH ×3 (08:32→21:39)
[2017-09-30] MEDS: CARVEDILOL 6.25 MG TABLET PO SCH ×2 (08:33→16:29)
[2017-09-30] MEDS: SUCRALFATE 1 GM TABLET PO SCH ×4 (08:33→21:39)
[2017-09-30] MEDS: amLODIPine 5 MG TABLET PO SCH (08:34)
[2017-09-30] MEDS: PANTOPRAZOLE 40 MG TABLET PO SCH (08:34)
[2017-09-30] MEDS: ASPIRIN EC 81 MG TABLET PO SCH (08:34)
[2017-09-30] MEDS: FERROUS GLUCONATE 324 MG TABLET PO SCH ×2 (08:34→16:28)
[2017-09-30] MEDS: DOCUSATE SODIUM 100 MG CAPSULE PO SCH ×2 (08:34→21:39)
[2017-09-30] MEDS: FUROSEMIDE 40 MG TABLET PO SCH (08:34)
[2017-09-30] MEDS: INSULIN REGULAR 100 UNIT/ML SUBCUT SCH ×4 (08:36→21:39)
[2017-09-30] MEDS: ENOXAPARIN 30 MG/0.3 ML SYRINGE SUBCUT SCH (08:37)
[2017-09-30] MEDS: INSULIN NPH/REGULAR 70/30 100 UNIT/ML SUBCUT SCH ×2 (08:37→16:29)
[2017-09-30] MEDS: ATORVASTATIN 40 MG TABLET PO SCH (21:39)
[2017-10-01] MEDS ORDERED: VANCOMYCIN INJ 1,250 MG in SODIUM CHLORIDE 0.9% 250 ML IV SCH (01:00)
[2017-10-01 05:08] LABS: Basophils % 0.2 % (0.0-0.8); Eosinophils # 0.1 10*3/uL (0.0-0.87); Eosinophils % 3.1 % (0.00-10.9); Hematocrit 26.4 VOL% (35.7-47.0); Hemoglobin 8.9 GM/DL (12.0-16.0); Immature Granulocytes % 0.5 %; Immature Granulocytes Absolute 0.02 #; Lymphocytes # 1.6 10*3/uL (1.4-4.0); Lymphocytes % 38.2 % (21.3-54.2); Mean Corpuscular HGB Conc 33.7 GM/DL (32-36); Mean Corpuscular Hemoglobin 32 PG (27-34); Mean Corpuscular Volume 94.6 FL (87-102); Mean Platelet Volume 10.2 FL (9.6-12.0); Monocytes # 0.3 10*3/uL (0.11-0.8); Neutrophils # 2.2 10*3/uL (1.4-7.4); Platelet Count 147 T/CUMM (130-400); Red Blood Count 2.79 MC/CUMM (3.8-5.5); Red Cell Distribution Width 12.1 % (9.3-17.3); White Blood Count 4.2 T/CUMM (4-12)
[2017-10-01 05:30] LABS: Albumin 2.1 G/DL (3.4-5.0); Bilirubin,Total 0.4 MG/DL (0.2-1.0); Calcium 8.2 MG/DL (8.5-10.1); Osmolality,Calculated 289.4 MOS/KG (273-304); Potassium 4.4 MMOL/L (3.5-5.1); Total Protein 6.8 G/DL (6.4-8.3)
[2017-10-01] MEDS: INSULIN NPH/REGULAR 70/30 100 UNIT/ML SUBCUT SCH ×2 (08:23→17:08)
[2017-10-01] MEDS: INSULIN REGULAR 100 UNIT/ML SUBCUT SCH ×3 (08:24→17:08)
[2017-10-01] MEDS: ENOXAPARIN 30 MG/0.3 ML SYRINGE SUBCUT SCH (08:38)
[2017-10-01] MEDS: ASPIRIN EC 81 MG TABLET PO SCH (08:39)
[2017-10-01] MEDS: GABAPENTIN 100 MG CAPSULE PO SCH ×2 (08:39→16:03)
[2017-10-01] MEDS: CARVEDILOL 6.25 MG TABLET PO SCH ×2 (08:39→17:09)
[2017-10-01] MEDS: amLODIPine 5 MG TABLET PO SCH (08:39)
[2017-10-01] MEDS: TAMOXIFEN 10 MG TABLET PO SCH (08:39)
[2017-10-01] MEDS: FERROUS GLUCONATE 324 MG TABLET PO SCH ×2 (08:40→17:09)
[2017-10-01] MEDS: SUCRALFATE 1 GM TABLET PO SCH ×3 (08:40→17:09)
[2017-10-01] MEDS: DOCUSATE SODIUM 100 MG CAPSULE PO SCH (08:40)
[2017-10-01] MEDS: FUROSEMIDE 40 MG TABLET PO SCH (08:40)
[2017-10-01] MEDS: PANTOPRAZOLE 40 MG TABLET PO SCH (08:40)
[2017-10-01 16:52] VITALS: BP 124/47
== END 2017-10-01 17:20 | disposition home health service (06) | DRG 854 ==
LOC: N.3E 22:18 → SUATTDRO 22:18
PROVIDERS: ADMIT Internal Medicine; ATTEND Internal Medicine
PROC: VAVDCFI (2017-09-29 14:43)

== ENCOUNTER 2019-06-16 13:38 | Inpatient (IN) ==
[2019-06-16] MEDS ORDERED: GLUCAGON 1 MG VIAL IM PRN (18:40)
[2019-06-16] MEDS ORDERED: DEXTROSE 10% 250 ML BAG IV PRN (18:40)
[2019-06-16] MEDS: INSULIN LISPRO 100 UNIT/ML SUBCUT SCH (23:06)
[2019-06-16] MEDS: dilTIAZem Drip 125 MG/125 ML PREMIX IV SCH (23:12)
[2019-06-16] MEDS: ATORVASTATIN 40 MG TABLET PO SCH (23:54)
[2019-06-16] MEDS: PANTOPRAZOLE 40 MG TABLET PO SCH (23:54)
[2019-06-16] MEDS: risperiDONE 1 MG TABLET PO SCH (23:54)
[2019-06-16] MEDS: DOCUSATE SODIUM 100 MG CAPSULE PO SCH (23:54)
[2019-06-17] MEDS: APIXABAN 2.5 MG TABLET PO SCH ×3 (00:08→21:50)
[2019-06-17] MEDS: DEXTROSE 5% NACL 0.45% 1,000 ML IV SCH ×2 (00:10→19:09)
[2019-06-17 06:10] LABS: Hemoglobin 10.2 GM/DL (12.0-16.0); Immature Granulocytes % 0.4 %; Immature Granulocytes Absolute 0.01 #; Lymphocytes # 0.4 10*3/uL (1.4-4.0); Lymphocytes % 14.5 % (21.3-54.2); Mean Corpuscular Volume 107.9 FL (87-102); Mean Platelet Volume 10.7 FL (9.6-12.0); Monocytes % 5.1 % (1.7-12.7); Platelet Count 74 T/CUMM (130-400); Red Blood Count 3.15 MC/CUMM (3.8-5.5); Red Cell Distribution Width 13.1 % (9.3-17.3); White Blood Count 2.8 T/CUMM (4-12)
[2019-06-17 07:23] LABS: Anisocytosis 2+; Basophilic Stippling Slight; Macrocytosis 2+; Platelet Estimate Decreased; Polychromasia Slight
[2019-06-17] MEDS: INSULIN LISPRO 100 UNIT/ML SUBCUT SCH ×4 (11:01→21:50)
[2019-06-17] MEDS: PANTOPRAZOLE 40 MG TABLET PO SCH ×2 (11:02→21:50)
[2019-06-17] MEDS: risperiDONE 1 MG TABLET PO SCH ×2 (11:02→21:50)
[2019-06-17] MEDS: DOCUSATE SODIUM 100 MG CAPSULE PO SCH ×2 (11:02→21:50)
[2019-06-17] MEDS: SEVELAMER CARBONATE POWDER 2.4 GM PACK PO SCH ×2 (11:02→19:09)
[2019-06-17] MEDS: ATORVASTATIN 40 MG TABLET PO SCH (21:50)
[2019-06-17] MEDS: MECLIZINE 25 MG TABLET PO PRN (21:50)
[2019-06-17] MEDS: dilTIAZem Drip 125 MG/125 ML PREMIX IV SCH (21:51)
[2019-06-18 06:25] LABS: Basophils % 0.3 % (0.0-0.8); Hematocrit 33.1 VOL% (35.7-47.0); Hemoglobin 9.8 GM/DL (12.0-16.0); Immature Granulocytes % 0.3 %; Immature Granulocytes Absolute 0.01 #; Lymphocytes # 0.3 10*3/uL (1.4-4.0); Lymphocytes % 7.9 % (21.3-54.2); Mean Corpuscular HGB Conc 29.6 GM/DL (32-36); Mean Corpuscular Volume 110.7 FL (87-102); Mean Platelet Volume 10.9 FL (9.6-12.0); Monocytes % 4.4 % (1.7-12.7); NRBC # 0.02 10*3/uL; Neutrophils % 87.1 % (38.7-73.9); Platelet Count 73 T/CUMM (130-400); Red Blood Count 2.99 MC/CUMM (3.8-5.5); Red Cell Distribution Width 12.8 % (9.3-17.3); White Blood Count 3.2 T/CUMM (4-12)
[2019-06-18 06:42] LABS: Calcium 7.9 MG/DL (8.5-10.1); Osmolality,Calculated 281.7 MOS/KG (273-304)
[2019-06-18 06:53] LABS: Hypochromasia 1+
[2019-06-18 06:54] LABS: Ovalocytes Slight; Platelet Estimate Decreased; Polychromasia Slight
[2019-06-18 07:24] LABS: Anisocytosis Slight; Band Neutrophils 8 % (0-10); Lymphocytes 4 % (20-55); Segmented Neutrophils 83 % (50-85); Total Cells Counted 100
[2019-06-18 07:25] LABS: Macrocytosis 1+
[2019-06-18] MEDS ORDERED: DILTIAZEM CD 120 MG CAPSULE PO SCH (09:00)
[2019-06-18] MEDS: DOCUSATE SODIUM 100 MG CAPSULE PO SCH ×2 (09:35→21:59)
[2019-06-18] MEDS: risperiDONE 1 MG TABLET PO SCH ×2 (09:35→21:59)
[2019-06-18] MEDS: PANTOPRAZOLE 40 MG TABLET PO SCH ×2 (09:35→21:59)
[2019-06-18] MEDS: INSULIN LISPRO 100 UNIT/ML SUBCUT SCH ×4 (09:55→21:59)
[2019-06-18] MEDS: METOPROLOL TARTRATE 25 MG TABLET PO SCH ×2 (10:06→21:59)
[2019-06-18] MEDS ORDERED: HEPARIN 10,000 UNIT/10 ML VIAL IV SCH (12:30)
[2019-06-18] MEDS: SEVELAMER CARBONATE POWDER 2.4 GM PACK PO SCH ×3 (12:56→16:27)
[2019-06-18 15:00] LABS: INR 1.2; PT Patient Result 12.4 SECS (9.8-11.9)
[2019-06-18] MEDS: ATORVASTATIN 40 MG TABLET PO SCH (21:59)
[2019-06-19] MEDS: NOREPINEPHRINE 8 MG in SODIUM CHLORIDE 0.9% 242 ML IV PRN ×5 (03:15→22:50)
[2019-06-19] MEDS ORDERED: SODIUM CHLORIDE 0.9% 250 ML IV ONE (03:16)
[2019-06-19] MEDS ORDERED: NOREPINEPHRINE 4 MG/4 ML VIAL IV ONE ×2 (03:17→22:48)
[2019-06-19] MEDS ORDERED: EPINEPHrine 1 MG/10 ML SYRINGE IV ONE (03:28)
[2019-06-19 03:48] LABS: ABG HCO3 20.9 MMOL/L (20-26); ABG Oxygen Saturation 86.6 % (95-100); ABG PCO2 55.9 MM HG (35-48); ABG PH 7.243 (7.35-7.45); ABG PO2 60.6 MM HG (80-95); ABG TCO2 22.2 MMOL/L (23-27); Allen Test Positive; Pt O2 Delivery Device Ventilator
[2019-06-19 04:13] LABS: Basophils % 0.2 % (0.0-0.8); Hematocrit 34.8 VOL% (35.7-47.0); Hemoglobin 10.4 GM/DL (12.0-16.0); Immature Granulocytes % 0.5 %; Immature Granulocytes Absolute 0.03 #; Lymphocytes # 1.6 10*3/uL (1.4-4.0); Lymphocytes % 29.1 % (21.3-54.2); Mean Corpuscular HGB Conc 29.9 GM/DL (32-36); Mean Corpuscular Volume 109.8 FL (87-102); Mean Platelet Volume 11.3 FL (9.6-12.0); Monocytes % 2.5 % (1.7-12.7); NRBC # 0.07 10*3/uL; Neutrophils % 67.7 % (38.7-73.9); Platelet Count 83 T/CUMM (130-400); Red Blood Count 3.17 MC/CUMM (3.8-5.5); Red Cell Distribution Width 12.9 % (9.3-17.3); White Blood Count 5.6 T/CUMM (4-12)
[2019-06-19 04:26] LABS: Calcium 7.7 MG/DL (8.5-10.1); Osmolality,Calculated 273.5 MOS/KG (273-304)
[2019-06-19 04:42] LABS: Band Neutrophils 4 % (0-10); Hypochromasia 1+; Lymphocytes 15 % (20-55); Nucleated Red Blood Cells 2 (0-5); Ovalocytes Slight; Platelet Estimate Decreased; Segmented Neutrophils 78 % (50-85); Total Cells Counted 100
[2019-06-19] MEDS: DEXTROSE 5% NACL 0.45% 1,000 ML IV SCH ×2 (04:45→10:26)
[2019-06-19] MEDS ORDERED: DEXTROSE 50% 25 GM/50 ML VIAL IV PRN (04:49)
[2019-06-19] MEDS: INSULIN LISPRO 100 UNIT/ML SUBCUT SCH ×3 (05:27→17:41)
[2019-06-19] MEDS ORDERED: ENOXAPARIN 100 MG/ML SYRINGE SUBCUT SCH (07:30)
[2019-06-19] MEDS: SEVELAMER CARBONATE POWDER 2.4 GM PACK PO SCH ×3 (08:39→16:50)
[2019-06-19] MEDS: risperiDONE 1 MG TABLET PO SCH ×2 (08:40→20:52)
[2019-06-19] MEDS: METOPROLOL TARTRATE 25 MG TABLET PO SCH ×2 (08:40→20:52)
[2019-06-19] MEDS: DOCUSATE SODIUM 100 MG CAPSULE PO SCH ×2 (08:40→20:52)
[2019-06-19] MEDS: PANTOPRAZOLE 40 MG TABLET PO SCH ×2 (08:40→20:52)
[2019-06-19] MEDS: TAMOXIFEN 10 MG TABLET PO SCH (11:27)
[2019-06-19] MEDS: ENOXAPARIN 80 MG/0.8 ML SYRINGE SUBCUT SCH (12:38)
[2019-06-19] MEDS: SODIUM CHLORIDE 0.9% 1,000 ML IV SCH (13:34)
[2019-06-19] MEDS ORDERED: DIGOXIN 0.5 MG/2 ML AMP IV ONE ×2 (16:06→17:00)
[2019-06-19] MEDS: ATORVASTATIN 40 MG TABLET PO SCH (20:52)
[2019-06-19] MEDS ORDERED: ACETAMINOPHEN 325 MG TABLET ONE (21:11)
[2019-06-19] MEDS: ACETAMINOPHEN 325 MG TABLET PO PRN (21:13)
[2019-06-20] MEDS: INSULIN LISPRO 100 UNIT/ML SUBCUT SCH ×4 (00:47→17:03)
[2019-06-20] MEDS: NOREPINEPHRINE 8 MG in SODIUM CHLORIDE 0.9% 242 ML IV PRN ×6 (02:36→20:50)
[2019-06-20 05:16] LABS: ABG Base Excess -0.5 MMOL/L (-2.5-2.5); ABG HCO3 22.8 MMOL/L (20-26); ABG Oxygen Saturation 26.9 % (95-100); ABG PCO2 49.7 MM HG (35-48); ABG PH 7.327 (7.35-7.45)
[2019-06-20 05:17] LABS: ABG PO2 22.8 MM HG (80-95)
[2019-06-20 05:53] LABS: ABG Base Excess -2.7 MMOL/L (-2.5-2.5); ABG HCO3 21.5 MMOL/L (20-26); ABG Oxygen Saturation 95.6 % (95-100); ABG PCO2 35.4 MM HG (35-48); ABG PH 7.402 (7.35-7.45); ABG PO2 80.6 MM HG (80-95); ABG TCO2 22.6 MMOL/L (23-27)
[2019-06-20] MEDS: SEVELAMER CARBONATE POWDER 2.4 GM PACK PO SCH ×3 (09:06→17:00)
[2019-06-20] MEDS: DOCUSATE SODIUM 100 MG CAPSULE PO SCH ×2 (09:06→21:24)
[2019-06-20] MEDS: METOPROLOL TARTRATE 25 MG TABLET PO SCH ×2 (09:06→21:26)
[2019-06-20] MEDS: PANTOPRAZOLE 40 MG TABLET PO SCH (09:06)
[2019-06-20] MEDS: ENOXAPARIN 80 MG/0.8 ML SYRINGE SUBCUT SCH (09:06)
[2019-06-20] MEDS: risperiDONE 1 MG TABLET PO SCH ×2 (09:06→21:27)
[2019-06-20] MEDS: TAMOXIFEN 10 MG TABLET PO SCH (10:01)
[2019-06-20] MEDS: APIXABAN 2.5 MG TABLET PO SCH (10:02)
[2019-06-20] MEDS: SODIUM CHLORIDE 0.9% 1,000 ML IV SCH (10:02)
[2019-06-20] MEDS ORDERED: NOREPINEPHRINE 4 MG/4 ML VIAL IV ONE (13:26)
[2019-06-20] MEDS ORDERED: DIGOXIN 0.5 MG/2 ML AMP IV ONE (13:29)
[2019-06-20 13:50] LABS: Basophils % 0.1 % (0.0-0.8); Hematocrit 33.5 VOL% (35.7-47.0); Hemoglobin 10.3 GM/DL (12.0-16.0); Immature Granulocytes % 1.8 %; Immature Granulocytes Absolute 0.15 #; Lymphocytes # 0.3 10*3/uL (1.4-4.0); Lymphocytes % 3.6 % (21.3-54.2); Mean Corpuscular HGB Conc 30.7 GM/DL (32-36); Monocytes % 1.9 % (1.7-12.7); NRBC # 0.04 10*3/uL; Neutrophils % 92.6 % (38.7-73.9); Platelet Count 97 T/CUMM (130-400); Red Blood Count 3.19 MC/CUMM (3.8-5.5); Red Cell Distribution Width 13.2 % (9.3-17.3); White Blood Count 8.4 T/CUMM (4-12)
[2019-06-20 14:19] LABS: Albumin 1.5 G/DL (3.4-5.0); Bilirubin,Total 1.1 MG/DL (0.2-1.0); Calcium 7.9 MG/DL (8.5-10.1); Osmolality,Calculated 282.5 MOS/KG (273-304); Total Protein 5.9 G/DL (6.4-8.3)
[2019-06-20] MEDS ORDERED: VANCOMYCIN INJ 500 MG in SODIUM CHLORIDE 0.9% 100 ML IV PRN (16:21)
[2019-06-20] MEDS ORDERED: VANCOMYCIN INJ 1,500 MG in SODIUM CHLORIDE 0.9% 500 ML IV ONE (17:00)
[2019-06-20] MEDS: ACETAMINOPHEN 325 MG TABLET PO PRN (21:00)
[2019-06-20] MEDS: PHENYLEPHRINE DRIP 40 MG/250 ML PREMIX IV PRN (21:22)
[2019-06-20] MEDS: ATORVASTATIN 40 MG TABLET PO SCH (21:26)
[2019-06-20] MEDS: PANTOPRAZOLE 40 MG VIAL IV SCH (21:26)
[2019-06-21] MEDS: NOREPINEPHRINE 8 MG in SODIUM CHLORIDE 0.9% 242 ML IV PRN ×6 (00:10→20:37)
[2019-06-21] MEDS: INSULIN LISPRO 100 UNIT/ML SUBCUT SCH ×5 (00:36→23:55)
[2019-06-21] MEDS: PHENYLEPHRINE DRIP 40 MG/250 ML PREMIX IV PRN ×8 (01:24→18:09)
[2019-06-21 04:14] LABS: ABG Base Excess -5.3 MMOL/L (-2.5-2.5); ABG HCO3 19.9 MMOL/L (20-26); ABG Oxygen Saturation 88.1 % (95-100); ABG PCO2 42.7 MM HG (35-48); ABG PH 7.298 (7.35-7.45); ABG PO2 59.7 MM HG (80-95); ABG TCO2 19.1 MMOL/L (23-27)
[2019-06-21 04:33] LABS: Basophils # 0.1 10*3/uL (0.0-0.2); Basophils % 0.9 % (0.0-0.8); Hematocrit 34.4 VOL% (35.7-47.0); Hemoglobin 10.4 GM/DL (12.0-16.0); Immature Granulocytes % 0.3 %; Immature Granulocytes Absolute 0.02 #; Lymphocytes # 0.2 10*3/uL (1.4-4.0); Lymphocytes % 2.9 % (21.3-54.2); Mean Corpuscular HGB Conc 30.2 GM/DL (32-36); Mean Corpuscular Volume 106.8 FL (87-102); Mean Platelet Volume 11.2 FL (9.6-12.0); Monocytes % 1.7 % (1.7-12.7); NRBC # 0.07 10*3/uL; Neutrophils % 94.2 % (38.7-73.9); Red Blood Count 3.22 MC/CUMM (3.8-5.5); Red Cell Distribution Width 13.2 % (9.3-17.3); White Blood Count 7.7 T/CUMM (4-12)
[2019-06-21 04:39] LABS: Platelet Count 91 T/CUMM (130-400)
[2019-06-21 04:45] LABS: Alanine Aminotransferase < 9 U/L (13-56); Albumin 1.3 G/DL (3.4-5.0); Alkaline Phosphatase 86 U/L (45-117); Aspartate Amino Transferase 26 U/L (0-37); Blood Urea Nitrogen 32 MG/DL (7-18); Calcium 7.3 MG/DL (8.5-10.1); Estimated Glom Filtration Rate 14 ML/MIN; Glucose 143 MG/DL (74-106); Osmolality,Calculated 274.4 MOS/KG (273-304); Total Protein 6.2 G/DL (6.4-8.3)
[2019-06-21 04:59] LABS: Band Neutrophils 6 % (0-10); Lymphocytes 2 % (20-55); Platelet Estimate Decreased; Segmented Neutrophils 91 % (50-85); Total Cells Counted 100
[2019-06-21 05:00] LABS: Hypochromasia 1+; Ovalocytes Slight
[2019-06-21] MEDS ORDERED: DIGOXIN 0.5 MG/2 ML AMP IV SCH (09:00)
[2019-06-21] MEDS: risperiDONE 1 MG TABLET PO SCH ×2 (09:08→21:12)
[2019-06-21] MEDS: PANTOPRAZOLE 40 MG VIAL IV SCH ×2 (09:08→21:11)
[2019-06-21] MEDS: methylPREDNISolone SOD SUC 40 MG/1 ML VIAL IV SCH ×2 (09:10→15:23)
[2019-06-21] MEDS: SEVELAMER CARBONATE POWDER 2.4 GM PACK PO SCH ×3 (09:10→17:00)
[2019-06-21] MEDS: ENOXAPARIN 80 MG/0.8 ML SYRINGE SUBCUT SCH (09:11)
[2019-06-21] MEDS: DOCUSATE SODIUM 100 MG CAPSULE PO SCH ×2 (09:11→21:11)
[2019-06-21] MEDS: METOPROLOL TARTRATE 25 MG TABLET PO SCH ×3 (09:11→21:11)
[2019-06-21] MEDS: TAMOXIFEN 10 MG TABLET PO SCH (09:42)
[2019-06-21] MEDS: PIPERACILLIN/TAZOBACTAM 3,375 MG in SODIUM CHLORIDE 0.9% 100 ML IV SCH ×2 (09:51→23:05)
[2019-06-21] MEDS ORDERED: NOREPINEPHRINE 4 MG/4 ML VIAL IV ONE (20:15)
[2019-06-21] MEDS: ATORVASTATIN 40 MG TABLET PO SCH (21:11)
[2019-06-22] MEDS: NOREPINEPHRINE 8 MG in SODIUM CHLORIDE 0.9% 242 ML IV PRN ×6 (00:30→23:46)
[2019-06-22] MEDS: methylPREDNISolone SOD SUC 40 MG/1 ML VIAL IV SCH ×4 (01:09→23:39)
[2019-06-22] MEDS: PHENYLEPHRINE DRIP 40 MG/250 ML PREMIX IV PRN ×6 (01:10→20:05)
[2019-06-22 04:45] LABS: ABG Base Excess -6.9 MMOL/L (-2.5-2.5); ABG HCO3 18.7 MMOL/L (20-26); ABG Oxygen Saturation 93.8 % (95-100); ABG PCO2 43.2 MM HG (35-48); ABG PH 7.269 (7.35-7.45); ABG TCO2 18.2 MMOL/L (23-27); Allen Test Positive; Pt O2 Delivery Device Ventilator
[2019-06-22 04:49] LABS: Basophils % 0.4 % (0.0-0.8); Hematocrit 34.3 VOL% (35.7-47.0); Hemoglobin 10.5 GM/DL (12.0-16.0); Immature Granulocytes % 0.7 %; Immature Granulocytes Absolute 0.06 #; Lymphocytes # 0.2 10*3/uL (1.4-4.0); Lymphocytes % 2.8 % (21.3-54.2); Mean Corpuscular HGB Conc 30.6 GM/DL (32-36); Mean Corpuscular Volume 105.9 FL (87-102); Mean Platelet Volume 11.4 FL (9.6-12.0); NRBC # 0.04 10*3/uL; Neutrophils % 92.1 % (38.7-73.9); Platelet Count 85 T/CUMM (130-400); Red Blood Count 3.24 MC/CUMM (3.8-5.5); Red Cell Distribution Width 13.5 % (9.3-17.3); White Blood Count 8.5 T/CUMM (4-12)
[2019-06-22 05:04] LABS: Calcium 7.2 MG/DL (8.5-10.1); Osmolality,Calculated 286.1 MOS/KG (273-304)
[2019-06-22 05:37] LABS: Band Neutrophils 2 % (0-10); Burr Cells Slight; Hypochromasia Slight; Lymphocytes 2 % (20-55); Ovalocytes Slight; Platelet Estimate Decreased; Segmented Neutrophils 91 % (50-85); Total Cells Counted 100
[2019-06-22] MEDS: INSULIN LISPRO 100 UNIT/ML SUBCUT SCH ×5 (05:54→23:39)
[2019-06-22] MEDS: PANTOPRAZOLE 40 MG VIAL IV SCH ×2 (08:30→21:26)
[2019-06-22] MEDS: DOCUSATE SODIUM 100 MG CAPSULE PO SCH ×2 (08:34→21:25)
[2019-06-22] MEDS: risperiDONE 1 MG TABLET PO SCH ×2 (08:34→21:28)
[2019-06-22] MEDS: ENOXAPARIN 80 MG/0.8 ML SYRINGE SUBCUT SCH (08:34)
[2019-06-22] MEDS: METOPROLOL TARTRATE 25 MG TABLET PO SCH ×2 (08:34→21:26)
[2019-06-22] MEDS: SEVELAMER CARBONATE POWDER 2.4 GM PACK PO SCH ×3 (08:35→18:36)
[2019-06-22] MEDS: TAMOXIFEN 10 MG TABLET PO SCH (08:35)
[2019-06-22] MEDS ORDERED: MAGNESIUM SULF RIDER 1 GM in PREMIX 1 EACH IV ONE (09:18)
[2019-06-22] MEDS ORDERED: MAGNESIUM SULF RIDER 100 ML IV ONE (09:50)
[2019-06-22] MEDS: PIPERACILLIN/TAZOBACTAM 3,375 MG in SODIUM CHLORIDE 0.9% 100 ML IV SCH ×2 (11:08→23:39)
[2019-06-22] MEDS: DIGOXIN 0.125 MG TABLET PO SCH (12:21)
[2019-06-22] MEDS ORDERED: VANCOMYCIN INJ 500 MG in SODIUM CHLORIDE 0.9% 100 ML IV ONE (17:00)
[2019-06-22] MEDS: ATORVASTATIN 40 MG TABLET PO SCH (21:26)
[2019-06-23] MEDS: PHENYLEPHRINE DRIP 40 MG/250 ML PREMIX IV PRN (01:46)
[2019-06-23 03:30] LABS: ABG Base Excess -3.3 MMOL/L (-2.5-2.5); ABG HCO3 21.5 MMOL/L (20-26); ABG Oxygen Saturation 91.1 % (95-100); ABG PCO2 45.5 MM HG (35-48); ABG PH 7.312 (7.35-7.45); ABG PO2 64.6 MM HG (80-95); Allen Test Positive; Pt O2 Delivery Device Ventilator
[2019-06-23] MEDS: NOREPINEPHRINE 8 MG in SODIUM CHLORIDE 0.9% 242 ML IV PRN ×5 (04:15→23:57)
[2019-06-23 05:26] LABS: Basophils # 0.1 10*3/uL (0.0-0.2); Basophils % 0.5 % (0.0-0.8); Hematocrit 32.9 VOL% (35.7-47.0); Hemoglobin 10.2 GM/DL (12.0-16.0); Immature Granulocytes % 0.8 %; Immature Granulocytes Absolute 0.09 #; Lymphocytes # 0.2 10*3/uL (1.4-4.0); Lymphocytes % 2.1 % (21.3-54.2); Mean Corpuscular Volume 103.5 FL (87-102); Mean Platelet Volume 11.9 FL (9.6-12.0); Monocytes % 2.5 % (1.7-12.7); NRBC # 0.08 10*3/uL; Neutrophils % 94.1 % (38.7-73.9); Red Blood Count 3.18 MC/CUMM (3.8-5.5); Red Cell Distribution Width 13.4 % (9.3-17.3); White Blood Count 10.7 T/CUMM (4-12)
[2019-06-23 05:29] LABS: Platelet Count 64 T/CUMM (130-400)
[2019-06-23 05:35] LABS: Calcium 7.4 MG/DL (8.5-10.1); Osmolality,Calculated 285.1 MOS/KG (273-304)
[2019-06-23] MEDS: INSULIN LISPRO 100 UNIT/ML SUBCUT SCH ×3 (05:35→18:12)
[2019-06-23 05:49] LABS: Band Neutrophils 4 % (0-10); Lymphocytes 1 % (20-55); Nucleated Red Blood Cells 1 (0-5); Segmented Neutrophils 93 % (50-85); Total Cells Counted 100
[2019-06-23 05:50] LABS: Burr Cells Few; Hypochromasia Slight; Macrocytosis Slight
[2019-06-23 05:51] LABS: Platelet Estimate Decreased
[2019-06-23] MEDS: PHENYLEPHRINE INJ 160 MG in SODIUM CHLORIDE 0.9% 234 ML IV PRN (10:32)
[2019-06-23] MEDS: risperiDONE 1 MG TABLET PO SCH ×2 (10:33→22:39)
[2019-06-23] MEDS: METOPROLOL TARTRATE 25 MG TABLET PO SCH ×2 (10:33→22:38)
[2019-06-23] MEDS: methylPREDNISolone SOD SUC 40 MG/1 ML VIAL IV SCH ×2 (10:34→15:05)
[2019-06-23] MEDS: TAMOXIFEN 10 MG TABLET PO SCH (10:34)
[2019-06-23] MEDS: SEVELAMER CARBONATE POWDER 2.4 GM PACK PO SCH ×3 (10:34→16:24)
[2019-06-23] MEDS: PANTOPRAZOLE 40 MG VIAL IV SCH ×2 (10:35→22:38)
[2019-06-23] MEDS: PIPERACILLIN/TAZOBACTAM 3,375 MG in SODIUM CHLORIDE 0.9% 100 ML IV SCH (10:36)
[2019-06-23] MEDS: DOCUSATE SODIUM 100 MG CAPSULE PO SCH ×2 (10:36→22:38)
[2019-06-23] MEDS: ENOXAPARIN 80 MG/0.8 ML SYRINGE SUBCUT SCH (12:37)
[2019-06-23] MEDS: DIGOXIN 0.125 MG TABLET PO SCH (12:38)
[2019-06-23] MEDS ORDERED: MAGNESIUM SULF RIDER 1 GM in PREMIX 1 EACH IV ONE (15:00)
[2019-06-23] MEDS: ATORVASTATIN 40 MG TABLET PO SCH (22:38)
[2019-06-24] MEDS: methylPREDNISolone SOD SUC 40 MG/1 ML VIAL IV SCH ×3 (00:43→18:40)
[2019-06-24] MEDS: INSULIN LISPRO 100 UNIT/ML SUBCUT SCH ×4 (00:44→18:42)
[2019-06-24 03:50] LABS: ABG Base Excess -6.9 MMOL/L (-2.5-2.5); ABG HCO3 18.8 MMOL/L (20-26); ABG Oxygen Saturation 94.9 % (95-100); ABG PCO2 53.4 MM HG (35-48); ABG PH 7.212 (7.35-7.45); ABG PO2 84.7 MM HG (80-95); ABG TCO2 19.8 MMOL/L (23-27)
[2019-06-24 04:43] LABS: Basophils # 0.1 10*3/uL (0.0-0.2); Basophils % 0.4 % (0.0-0.8); Hematocrit 33.2 VOL% (35.7-47.0); Hemoglobin 10.5 GM/DL (12.0-16.0); Immature Granulocytes % 1.8 %; Immature Granulocytes Absolute 0.26 #; Lymphocytes # 0.4 10*3/uL (1.4-4.0); Lymphocytes % 2.4 % (21.3-54.2); Mean Corpuscular HGB Conc 31.6 GM/DL (32-36); Mean Corpuscular Volume 105.4 FL (87-102); Mean Platelet Volume 12.7 FL (9.6-12.0); Monocytes % 1.6 % (1.7-12.7); NRBC # 0.12 10*3/uL; Neutrophils % 93.8 % (38.7-73.9); Red Blood Count 3.15 MC/CUMM (3.8-5.5); White Blood Count 14.5 T/CUMM (4-12)
[2019-06-24 04:47] LABS: Platelet Count 44 T/CUMM (130-400)
[2019-06-24 04:52] LABS: Calcium 7.2 MG/DL (8.5-10.1); Osmolality,Calculated 292.1 MOS/KG (273-304)
[2019-06-24] MEDS: NOREPINEPHRINE 8 MG in SODIUM CHLORIDE 0.9% 242 ML IV PRN ×3 (05:10→16:00)
[2019-06-24 05:33] LABS: Band Neutrophils 6 % (0-10); Hypochromasia 2+; Lymphocytes 1 % (20-55); Metamyelocytes 1 %; Nucleated Red Blood Cells 1 (0-5); Ovalocytes Few; Platelet Estimate Decreased; Segmented Neutrophils 90 % (50-85); Total Cells Counted 100
[2019-06-24] MEDS: TAMOXIFEN 10 MG TABLET PO SCH (08:51)
[2019-06-24] MEDS: ENOXAPARIN 80 MG/0.8 ML SYRINGE SUBCUT SCH (08:51)
[2019-06-24] MEDS: MECLIZINE 25 MG TABLET PO PRN (08:51)
[2019-06-24] MEDS: METOPROLOL TARTRATE 25 MG TABLET PO SCH ×2 (08:51→21:50)
[2019-06-24] MEDS: risperiDONE 1 MG TABLET PO SCH ×2 (08:51→21:50)
[2019-06-24] MEDS: PANTOPRAZOLE 40 MG VIAL IV SCH ×2 (08:51→21:50)
[2019-06-24] MEDS: DOCUSATE SODIUM 100 MG CAPSULE PO SCH ×2 (08:51→21:50)
[2019-06-24] MEDS: SEVELAMER CARBONATE POWDER 2.4 GM PACK PO SCH ×3 (08:52→18:41)
[2019-06-24] MEDS: DIGOXIN 0.125 MG TABLET PO SCH (15:05)
[2019-06-24] MEDS: ALBUMIN 25% 12.5 GM in PREMIX 1 EACH IV SCH ×2 (18:40→18:44)
[2019-06-24] MEDS: ATORVASTATIN 40 MG TABLET PO SCH (21:50)
[2019-06-24] MEDS: PHENYLEPHRINE INJ 160 MG in SODIUM CHLORIDE 0.9% 234 ML IV PRN (21:51)
[2019-06-24] MEDS: NOREPINEPHRINE 16 MG in SODIUM CHLORIDE 0.9% 234 ML IV PRN (21:52)
[2019-06-25] MEDS: methylPREDNISolone SOD SUC 40 MG/1 ML VIAL IV SCH ×4 (00:39→23:46)
[2019-06-25] MEDS: INSULIN LISPRO 100 UNIT/ML SUBCUT SCH ×4 (01:30→17:25)
[2019-06-25] MEDS: ALBUMIN 25% 12.5 GM in PREMIX 1 EACH IV SCH ×2 (02:44→11:41)
[2019-06-25 04:36] LABS: Allen Test Positive; Pt O2 Delivery Device Ventilator
[2019-06-25 04:39] LABS: Basophils % 0.2 % (0.0-0.8); Hematocrit 30.4 VOL% (35.7-47.0); Hemoglobin 9.5 GM/DL (12.0-16.0); Immature Granulocytes % 1.1 %; Immature Granulocytes Absolute 0.15 #; Lymphocytes # 0.4 10*3/uL (1.4-4.0); Lymphocytes % 3.3 % (21.3-54.2); Mean Corpuscular HGB Conc 31.3 GM/DL (32-36); Mean Corpuscular Volume 105.2 FL (87-102); Mean Platelet Volume 13.5 FL (9.6-12.0); Monocytes % 2.2 % (1.7-12.7); NRBC # 0.11 10*3/uL; Neutrophils % 93.2 % (38.7-73.9); Red Blood Count 2.89 MC/CUMM (3.8-5.5); Red Cell Distribution Width 14.2 % (9.3-17.3); White Blood Count 13.2 T/CUMM (4-12)
[2019-06-25 04:42] LABS: Platelet Count 46 T/CUMM (130-400)
[2019-06-25 04:46] LABS: ABG HCO3 17.9 MMOL/L (20-26); ABG Oxygen Saturation 93.8 % (95-100); ABG PCO2 52.8 MM HG (35-48); ABG PO2 80.1 MM HG (80-95); ABG TCO2 19.1 MMOL/L (23-27)
[2019-06-25 04:52] LABS: Calcium 7.5 MG/DL (8.5-10.1); Osmolality,Calculated 290.4 MOS/KG (273-304)
[2019-06-25 04:53] LABS: ABG PH 7.194 (7.35-7.45)
[2019-06-25 05:02] LABS: Band Neutrophils 1 % (0-10); Hypochromasia 1+; Lymphocytes 1 % (20-55); Ovalocytes Slight; Platelet Estimate Decreased; Segmented Neutrophils 96 % (50-85); Total Cells Counted 100
[2019-06-25] MEDS ORDERED: SODIUM BICARB INJ 100 MEQ in DEXTROSE 5% 1,000 ML IV SCH (06:30)
[2019-06-25] MEDS ORDERED: POTASSIUM CHLORIDE RIDER 10 MEQ in PREMIX 1 EACH IV PRN (07:48)
[2019-06-25] MEDS: risperiDONE 1 MG TABLET PO SCH ×2 (09:02→20:58)
[2019-06-25] MEDS: SEVELAMER CARBONATE POWDER 2.4 GM PACK PO SCH ×3 (09:02→16:55)
[2019-06-25] MEDS: PANTOPRAZOLE 40 MG VIAL IV SCH (09:02)
[2019-06-25] MEDS: TAMOXIFEN 10 MG TABLET PO SCH (09:05)
[2019-06-25] MEDS: DOCUSATE SODIUM 100 MG CAPSULE PO SCH ×2 (10:09→21:01)
[2019-06-25] MEDS: NOREPINEPHRINE 16 MG in SODIUM CHLORIDE 0.9% 234 ML IV PRN ×2 (10:11→21:24)
[2019-06-25] MEDS ORDERED: FONDAPARINUX 2.5 MG/0.5 ML SYRINGE SUBCUT SCH (13:00)
[2019-06-25] MEDS: DIGOXIN 0.125 MG TABLET PO SCH (13:10)
[2019-06-25] MEDS: METOPROLOL TARTRATE 25 MG TABLET PO SCH ×2 (13:10→20:58)
[2019-06-25] MEDS: ceFAZolin 1,000 MG in SYRINGE 1 EACH IV SCH (13:10)
[2019-06-25] MEDS: ENOXAPARIN 80 MG/0.8 ML SYRINGE SUBCUT SCH (13:40)
[2019-06-25] MEDS: ATORVASTATIN 40 MG TABLET PO SCH (21:01)
[2019-06-26] MEDS: INSULIN LISPRO 100 UNIT/ML SUBCUT SCH ×4 (00:45→17:30)
[2019-06-26 04:27] LABS: Allen Test Positive; Pt O2 Delivery Device Ventilator
[2019-06-26 04:28] LABS: ABG Base Excess -5.9 MMOL/L (-2.5-2.5); ABG HCO3 19.5 MMOL/L (20-26); ABG Oxygen Saturation 90.5 % (95-100); ABG PCO2 51.9 MM HG (35-48); ABG PH 7.233 (7.35-7.45); ABG PO2 66.4 MM HG (80-95); ABG TCO2 20.5 MMOL/L (23-27)
[2019-06-26 07:07] LABS: Calcium 7.3 MG/DL (8.5-10.1); Osmolality,Calculated 291.2 MOS/KG (273-304)
[2019-06-26 07:31] LABS: Basophils # 0.1 10*3/uL (0.0-0.2); Basophils % 0.4 % (0.0-0.8); Hematocrit 29.5 VOL% (35.7-47.0); Hemoglobin 9.4 GM/DL (12.0-16.0); Immature Granulocytes % 0.8 %; Immature Granulocytes Absolute 0.11 #; Lymphocytes # 0.2 10*3/uL (1.4-4.0); Lymphocytes % 1.5 % (21.3-54.2); Mean Corpuscular HGB Conc 31.9 GM/DL (32-36); Mean Corpuscular Volume 106.1 FL (87-102); Mean Platelet Volume 13.2 FL (9.6-12.0); Monocytes % 1.6 % (1.7-12.7); NRBC # 0.13 10*3/uL; Neutrophils % 95.7 % (38.7-73.9); Red Blood Count 2.78 MC/CUMM (3.8-5.5); Red Cell Distribution Width 14.4 % (9.3-17.3); White Blood Count 13.7 T/CUMM (4-12)
[2019-06-26 07:33] LABS: Platelet Count 48 T/CUMM (130-400)
[2019-06-26 07:53] LABS: Band Neutrophils 2 % (0-10); Hypochromasia Slight; Lymphocytes 1 % (20-55); Platelet Estimate Decreased; Segmented Neutrophils 97 % (50-85); Total Cells Counted 100
[2019-06-26] MEDS: DOCUSATE SODIUM 100 MG CAPSULE PO SCH ×2 (08:42→20:44)
[2019-06-26] MEDS: PANTOPRAZOLE 40 MG VIAL IV SCH (08:43)
[2019-06-26] MEDS: risperiDONE 1 MG TABLET PO SCH ×2 (08:43→20:45)
[2019-06-26] MEDS: METOPROLOL TARTRATE 25 MG TABLET PO SCH ×2 (08:43→20:45)
[2019-06-26] MEDS: methylPREDNISolone SOD SUC 40 MG/1 ML VIAL IV SCH ×2 (08:43→16:08)
[2019-06-26] MEDS: ENOXAPARIN 80 MG/0.8 ML SYRINGE SUBCUT SCH (08:44)
[2019-06-26] MEDS: ceFAZolin 1,000 MG in SYRINGE 1 EACH IV SCH (08:44)
[2019-06-26] MEDS: SEVELAMER CARBONATE POWDER 2.4 GM PACK PO SCH ×3 (08:45→16:08)
[2019-06-26] MEDS: NOREPINEPHRINE 16 MG in SODIUM CHLORIDE 0.9% 234 ML IV PRN (09:19)
[2019-06-26] MEDS: PHENYLEPHRINE INJ 160 MG in SODIUM CHLORIDE 0.9% 234 ML IV PRN (09:19)
[2019-06-26] MEDS: ATORVASTATIN 40 MG TABLET PO SCH (20:45)
[2019-06-27] MEDS: INSULIN LISPRO 100 UNIT/ML SUBCUT SCH ×2 (00:30→06:23)
[2019-06-27] MEDS: methylPREDNISolone SOD SUC 40 MG/1 ML VIAL IV SCH ×3 (00:30→09:01)
[2019-06-27 05:12] LABS: Basophils # 0.1 10*3/uL (0.0-0.2); Basophils % 0.4 % (0.0-0.8); Eosinophils % 0.1 % (0.00-10.9); Hemoglobin 8.8 GM/DL (12.0-16.0); Immature Granulocytes % 1.8 %; Immature Granulocytes Absolute 0.33 #; Lymphocytes # 0.3 10*3/uL (1.4-4.0); Lymphocytes % 1.4 % (21.3-54.2); Mean Corpuscular HGB Conc 30.3 GM/DL (32-36); Mean Corpuscular Volume 107.4 FL (87-102); Monocytes % 1.2 % (1.7-12.7); NRBC # 0.35 10*3/uL; Neutrophils % 95.1 % (38.7-73.9); Red Cell Distribution Width 14.9 % (9.3-17.3); White Blood Count 18.2 T/CUMM (4-12)
[2019-06-27 05:17] LABS: Platelet Count 46 T/CUMM (130-400)
[2019-06-27 05:21] LABS: Calcium 7.6 MG/DL (8.5-10.1); Osmolality,Calculated 289.5 MOS/KG (273-304)
[2019-06-27 05:35] LABS: Band Neutrophils 2 % (0-10); Nucleated Red Blood Cells 5 (0-5); Segmented Neutrophils 97 % (50-85); Total Cells Counted 100
[2019-06-27 05:36] LABS: Burr Cells Slight; Hypochromasia 2+; Ovalocytes Slight; Platelet Estimate Decreased
[2019-06-27] MEDS: NOREPINEPHRINE 16 MG in SODIUM CHLORIDE 0.9% 234 ML IV PRN (07:46)
[2019-06-27 08:25] LABS: Allen Test Positive; Pt O2 Delivery Device Ventilator
[2019-06-27 08:26] LABS: ABG Base Excess -12.6 MMOL/L (-2.5-2.5); ABG HCO3 14.4 MMOL/L (20-26); ABG Oxygen Saturation 85.5 % (95-100); ABG PCO2 54.7 MM HG (35-48); ABG PO2 64.7 MM HG (80-95); ABG TCO2 16.5 MMOL/L (23-27)
[2019-06-27 08:27] LABS: ABG PH 7.103 (7.35-7.45)
[2019-06-27] MEDS: ceFAZolin 1,000 MG in SYRINGE 1 EACH IV SCH ×2 (08:41→09:02)
[2019-06-27] MEDS: PANTOPRAZOLE 40 MG VIAL IV SCH ×2 (08:41→09:02)
[2019-06-27] MEDS: SODIUM BICARBONATE 50 MEQ/50 ML VIAL IV ONE ×2 (08:41→09:01)
[2019-06-27] MEDS: SEVELAMER CARBONATE POWDER 2.4 GM PACK PO SCH ×2 (08:42→09:00)
[2019-06-27] MEDS: METOPROLOL TARTRATE 25 MG TABLET PO SCH ×2 (08:42→09:02)
[2019-06-27] MEDS: risperiDONE 1 MG TABLET PO SCH ×2 (08:42→09:03)
[2019-06-27] MEDS: DOCUSATE SODIUM 100 MG CAPSULE PO SCH ×2 (08:43→09:02)
[2019-06-27] MEDS: ENOXAPARIN 80 MG/0.8 ML SYRINGE SUBCUT SCH (09:00)
[2019-06-27] MEDS ORDERED: LORazepam 2 MG/1 ML VIAL IV PRN (09:29)
[2019-06-27] MEDS ORDERED: MORPHINE 4 MG/1 ML VIAL IV PRN (09:29)
[2019-06-27 11:33] VITALS: BP 96/40
== END 2019-06-27 12:03 | disposition expired | DRG 870 ==
LOC: N.2W 18:06 → SUATTDRO 18:06 → N.2W 06-17 07:04 → N.CC 06-19 03:21
PROVIDERS: ADMIT Internal Medicine; ATTEND Internal Medicine